=== PATIENT | male | born 2005 | race Caucasian/White ===

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

== ENCOUNTER 2023-03-04 10:48 | Outpatient (AMB) | payer OTHER, SELFPAY ==
[2023-03-04 10:56] VITALS: BP 108/66; PULSE 89; RESP 13; TEMP 36.3; O2SAT 99; BMI 24.0
--- NOTE | 2023-03-04 10:56 | MHC.PC.OV ---
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 Accompanied by: Brother Allergies No Known Allergies Allergy (Verified 03/04/23 11:13) Medication List - Last Reconciled 03/04/23 by Tomi Venegas CNP baclofen 5 mg PO TID fluoxetine 10 mg PO DAILY quetiapine (Seroquel) 25 mg PO BEDTIME 30 days trihexyphenidyl 2 mg PO TID Tobacco use date assessed: 06/11/22 Dental Screening Dental Screen Date: 03/04/23 Did you have a dental visit in the last 12 months?: No Did you have a dental problem in the last 6 months where you did not have access to dental care?: No Was dental information given to patient?: Patient has dentist HPI HPI Comments History of Present Illness Details 16-year-old Sinhala speaking male, accompanied by his brother, presents for immigration paperwork He filed for immigration benefit for [place] citizenship on the basis of his disability. He was asked to have Notice of Appeal or Motion forms completed and signed by a physician He has history of anxiety, depression, and sleep disturbances According to his brother, the patient's anxiety and depression symptoms have been well-controlled He is followed by [facility] neuropsychiatry, Dr. Karma Chamorro who manages his mental illnesses [facility] Medical History Ataxic gait Cerebral palsy Cerebral palsy with gross motor function classification system level II Surgical History H/O left inguinal hernia repair S/P orchiopexy Family History Mother Hypertension Diabetes Maternal Grandmother Hypertension Diabetes Paternal Grandmother Diabetes Hypertension Social History Household Members: Family Household Members Other:: cared for by adult siblings. parents still in [place] (??) Both parents involved: Yes Housing: House Alcohol intake: never Patient Tobacco Use Status: Never used Tobacco e-Cigarette/Vaping Use: Never Used service: No Current occupational status: disabled Current occupational exposures/hazards: No Cognitive needs: Yes Hearing needs: No Vision needs: No Questionnaire Thrive Questionnaire Date Thrive assessed: 06/11/22 FROILAN-7 AMB Questionnaire FROILAN-7 Date FROILAN - 7 assessed: 11/09/22 Source: Developed by Drs. Felix Menjivar, Abigail Anderson, Heath Ibarra and colleagues, with an educational lane from [employer]. Review of Systems Const Details: Const Details: Denies chills, Denies fatigue, Denies fever(s), Denies headache(s) and Denies weakness HEENT Denies change in vision, Denies dizziness, Denies headache(s), Denies hearing loss, Denies nasal congestion, Denies sinus pain, Denies sinus pressure and Denies sore throat Card Denies chest pain, Denies lightheadedness, Denies dyspnea and Denies other (palpitations) Resp Denies cough, Denies dyspnea and Denies wheezing GI Denies abdominal pain, Denies melena, Denies hematochezia, Denies change in bowel habits, Denies dyspepsia and Denies nausea Denies hematuria and Denies dysuria Musc Reports abnormal gait, Denies myalgias, Denies arthralgias, Denies numbness and Denies tingling Skin/Breast Denies rash, Denies unusual bruising and Denies wounds Neuro Reports abnormal gait, Denies dizziness, Denies headache(s), Denies memory loss, Denies numbness, Denies Sensory deficit (Neuro), Denies tingling and Denies weakness Psych Denies anxiety, Denies depression and Denies memory loss Endo Denies cold intolerance, Denies fatigue, Denies heat intolerance, Denies polydipsia and Denies polyuria Luan/Lymph Denies easy bleeding and Denies easy bruising Aller/Immun Denies wheezing Physical exam (Primary Care) Vital Signs: Last Vital Signs Temp 97.4 F 03/04/23 10:56 Pulse 89 03/04/23 10:56 Resp 13 03/04/23 10:56 BP 108/66 03/04/23 10:56 Pulse Ox 99 03/04/23 10:56 Oxygen Delivery Method Room Air 03/04/23 10:56 BMI result Body Mass Index 24.0 Tobacco/Smoking Status: Tobacco use Status Tobacco use date assessed 06/11/22 11/09/22 11:06 Patient Tobacco Use Status Never used Tobacco 11/09/22 11:06 e-Cigarette/Vaping Use Never Used 11/09/22 11:06 Thrive Assessment: Date of Thrive Assessment Date Thrive assessed 06/11/22 11/09/22 11:06 Const Other: Const Other: General: no acute distress, alert, awake, and pleasant Nutritional Appearance: well nourished Orientation/consciousness: patient alert, quite pleasant, follows commands that are translated into Sinhala by his brother, responds in one or 2 words, in Sinhala HENMT Head: Yes normocephalic and Yes atraumatic Ears:?hearing grossly normal bilaterally and TM's normal bilaterally General nose exam: Normal external nose present and Normal nares present Mouth:?Normal oral and palatal mucosa present and moist mucous membranes Teeth and gingiva:?dentition normal Throat:?Yes oropharynx normal Eyes Pupils: Equal, round and reactive pupils present and Pupil accommodation reflex normal EOM: EOMs intact bilaterally Neck Neck: Yes normal visual inspection, Yes no lymphadenopathy and Yes trachea midline Thyroid: Thyroid normal Carotids: no bruits Lymphatic: no lymphadenopathy noted Chest Chest palpation & inspection: normal inspection of the chest Resp Effort & Inspection: normal respiratory effort Auscultation: clear to auscultation bilaterally Cardio Rate: regular rate Rhythm: regular rhythm Heart sounds: S1 normal heart sound present, S2 normal heart sound present, no gallops, no murmurs and no rubs Bruits: no abdominal aortic bruits and no carotid bruits GI Palpation (GI): No Abdominal aortic bruit present, Soft to palpation, nontender, No hepatosplenomegaly present and No Rebound tenderness present Auscultation: normal bowel sounds General: Yes no CVA tenderness Back/Spine/Pelvis Back: no CVA tenderness Cervical Spine: cervical ROM normal and No Cervical spine tenderness Thoracic/Lumbar Spine: thoraco-lumbar ROM normal, No pain with thoraco-lumbar ROM, No thoracic spinal tenderness and No lumbar spinal tenderness Skin General: warm and dry. Normal skin color. Normal skin turgor Lesions: no lesions Rashes: no rashes Trauma: no lacerations or abrasions Wounds: no wounds Nails: normal Neuro General: patient alert, crouch gait and responds in one to two words Cranial nerves: Yes Equal, round and reactive pupils present Cognition (Neuro): impaired cognition at baseline Gait exam (Neuro): crotch gait present at baseline Motor exam (neuro): 5/5 motor strength present throughout Sensory Exam: abnormal speech at baseline Extrem General: Yes normal to inspection, No edema and No calf tenderness Psych Appearance: grossly normal Affect: normal affect Attitude: pleasant and cooperative Thought process: unable to determined Assessment and Plan Assessment & Plan (1) Anxiety and depression: Code(s): F41.9 - Anxiety disorder, unspecified; F32.A - Depression, unspecified Plan: Reports controlled symptoms Continue with current treatment regimen Continue follow neuropsychiatry as planned Immigration paperwork to be completed by Dr. Solano Advised to follow-up with PCP as planned or return with symptoms or concerns Verbalized understanding and agreed with treatment plan The patient's brother answered questions and interpreted for the patient Coding Level of Care Code Est Pt Level 3 (04003) Diagnoses Anxiety and depression F41.9; F32.A
== END 2023-03-04 12:00 | disposition home or self-care (01) ==
PROVIDERS: PCP Nurse Practitioner Family; Visit Provider Nurse Practitioner Family
DX: F41.9 Anxiety disorder, unspecified (principal); F32.A Depression, unspecified
CPT/HCPCS: 99213

== ENCOUNTER 2023-08-10 14:45 | Outpatient (AMB) | payer OTHER, SELFPAY ==
[2023-08-10 14:47] VITALS: BP 116/70; PULSE 77; RESP 14; TEMP 36.1; O2SAT 99; BMI 23.3
--- NOTE | 2023-08-10 14:47 | A.OFFPC_ITS ---
Vital Signs 08/10/23 14:47 Height 5 ft 4.7 in Weight 139 lb BMI 23.3 BP 116/70 Blood Pressure Location Rt brachial Position Sitting Respiration 14 Pulse 77 Pulse Source Pulse Oximeter Temp 97 F Temp Source Temporal Artery Scan Pulse Oximetry (%) 99 Oxygen Delivery Method Room Air Intake Visit Reasons: PE Cloud Developer Required: Yes Cloud Developer Name: Kelsey (sister) Accompanied by: Sister Allergies No Known Allergies Allergy (Verified 08/10/23 15:09) Medication List - Last Reconciled 08/10/23 by Tomi Venegas CNP baclofen 5 mg PO TID trihexyphenidyl 2 mg PO TID Tobacco use date assessed: 08/10/23 Dental Screening Dental Screen Date: 08/10/23 Did you have a dental visit in the last 12 months?: No Did you have a dental problem in the last 6 months where you did not have access to dental care?: No Was dental information given to patient?: Yes HPI HPI Comments History of Present Illness Details 17-year-old Nepali speaking male, accomp anied by his sister, presents for an extended physical exam He has PMH significant for ataxic cerebral palsy, spastic quadriplegia, ataxia, and GMFCS II He is on baclofen and trihexyphendidyl which he takes as prescribed without adverse reactions. He has no longer taking fluoxetine He has controlled anxiety and depression symptoms He has history of drooling which has recently increased He also has discolored toenails which maybe a fungal infection; request treatment He is followed by [facility] neuropsychiatry, Dr. Karma Chamorro who provide psychiatric care He has not been evaluated by a dentist in over a year Interpretation by the patient's sister per patient's preference [facility] Medical History Ataxic gait Cerebral palsy with gross motor function classification system level II Cerebral palsy Surgical History S/P orchiopexy H/O left inguinal hernia repair Family History Mother Hypertension Diabetes Maternal Grandmother Hypertension Diabetes Paternal Grandmother Diabetes Hypertension Social History Household Members: Family Household Members Other:: cared for by adult siblings. parents still in [place] (??) Both parents involved: Yes Caregiver staying overnight: Yes Housing: Apartment Are you a primary intensive care ambulance paramedic to a significant other at home: No Do you presently have visiting nurse or other home services: Yes 75 years or older and lives alone: No Alcohol intake: never Patient Tobacco Use Status: Never used Tobacco e-Cigarette/Vaping Use: Never Used service: No Current occupational status: disabled Current occupational exposures/hazards: No Cognitive needs: Yes Hearing needs: No Vision needs: No Questionnaire PHQ-9 Over the last 2 weeks, how often have you been bothered by any of the following problems? 1. Little interest or pleasure in doing things: not at all 2. Feeling down, depressed, or hopeless: not at all 3. Trouble falling or staying asleep, or sleeping too much: several days 4. Feeling tired or having little energy: several days 5. Poor appetite or overeating: not at all 6. Feeling bad about yourself - or that you are a failure or have let yourself or your family down: not at all 7. Trouble concentrating on things, such as reading the newspaper or watching television: not at all 8. Moving or speaking so slowly that other people could have noticed. Or the opposite - being so fidgety or restless that you have been moving around a lot more than usual: not at all 9. Thoughts that you would be better off or of hurting yourself in some way: not at all Total score: 2 Depression Screening Interpretation: Negative Depression Screening Done: Yes 45538 - PHQ-9 Billing: Yes Source: Developed by Drs. Felix Menjivar, Abigail Anderson, Heath Ibarra and colleagues, with an educational lane from [employer]. Thrive Questionnaire Date Thrive assessed: 08/10/23 I am a: Patient What is your living situation today?: I have a steady place to live Within the past 12 months, did the food you bought not last and you didn't have the money to get more?: Never true Within the past 12 months, did you worry whether your food would run out before you got money to buy more?: Never true Do you have trouble paying for medicines?: No Do you have trouble getting transportation to medical appointments?: No Do you have trouble paying your heating and electricity bill?: Yes Do you have trouble taking care of your child, family member or friend?: No Do you have trouble with day-to-day activities such as bathing, preparing meals, shopping, managing finances, etc.?: Yes Are you currently unemployed and looking for a job?: No Are you interested in more education?: No Please select the resources that you would like help with: None Currently or been in a relationship where the following occur: no concerns reported THRIVE Score: 1 AUDIT C Alcohol Use Questionnaire (AUDIT-C) 1. How often do you have a drink containing alcohol?: Never 3. How often do you have six or more drinks on one occasion?: Never Total Score: 0 FROILAN-7 AMB Questionnaire FROILAN-7 Date FROILAN - 7 assessed: 08/10/23 Feeling nervous, anxious, or on edge: 0 = Not at all Not being able to stop or control worryin = Not at all Worrying too much about different things: 0 = Not at all Trouble relaxin = Several days Being so restless that it is hard to sit still: 1 = Several days Becoming easily annoyed or irritable: 2 = More than half the days Feeling afraid as if something awful might happen: 0 = Not at all Total FROILAN-7 score (0-4 normal; 5-9 mild; 10-14 moderate; 15-21 severe): 4 Source: Developed by Drs. Felix Menjivar, Abigail Anderson, Heath Ibarra and colleagues, with an educational lane from [employer]. FROILAN-7 Assessment Billing FROILAN-7 Assessment Tool: FROILAN-7 Assessment 37112 Review of Systems Const Details: Denies chills, Denies fatigue, Denies fever(s), Denies headache(s) and Denies weakness HEENT Reports drooling, Denies change in vision, Denies dizziness, Denies headache(s), Denies hearing loss, Denies nasal congestion, Denies sinus pain, Denies sinus pressure and Denies sore throat Card Denies chest pain, Denies lightheadedness, Denies dyspnea and Denies other (palpitations) Resp Denies cough, Denies dyspnea and Denies wheezing GI Denies abdominal pain, Denies melena, Denies hematochezia, Denies change in mariya wel habits, Denies dyspepsia and Denies nausea Denies hematuria and Denies dysuria Musc Denies abnormal gait, Denies myalgias, Denies arthralgias, Denies numbness and Denies tingling Skin/Breast Reports discolored noenails, Denies rash, Denies unusual bruising and Denies wo unds Neuro Denies abnormal gait, Denies dizziness, Denies headache(s), Denies memory loss, Denies numbness, Denies Sensory deficit (Neuro), Denies tingling and Denies weakness Psych Denies anxiety, Denies depression and Denies memory loss Endo Denies cold intolerance, Denies fatigue, Denies heat intolerance, Denies polydipsia and Denies polyuria Luan/Lymph Denies easy bleeding and Denies easy bruising Aller/Immun Denies wheezing Physical exam (Primary Care) Vital Signs: Last Vital Signs Temp 97 F 08/10/23 14:47 Pulse 77 08/10/23 14:47 Resp 14 08/10/23 14:47 BP 116/70 08/10/23 14:47 Pulse Ox 99 08/10/23 14:47 Oxygen Delivery Method Room Air 08/10/23 14:47 BMI result Body Mass Index 23.3 Tobacco/Smoking Status: Tobacco use Status Tobacco use date assessed 06/11/22 03/04/23 11:03 Patient Tobacco Use Status Never used Tobacco 03/04/23 11:03 e-Cigarette/Vaping Use Never Used 03/04/23 11:03 Depression Screening Interpretation: Negative Thrive Assessment: Date of Thrive Assessment Date Thrive assessed 06/11/22 03/04/23 11:03 Currently or been in a relationship where the following occur: no concerns reported Const Other: Const Other: General: no acute distress, alert and awake Nutritional Appearance: well nourished Orientation/consciousness: patient alert, quite pleasant, follows commands that are translated into Nepali by his brother and sister RAYMONDTX Head: Yes normocephalic and Yes atraumatic Ears: hearing grossly normal bilaterally and TM's normal bilaterally General nose exam: Normal external nose present and Normal nares present Mouth: Normal oral and palatal mucosa present and moist mucous membranes Teeth and gingiva: dentition normal Throat: Yes oropharynx normal Eyes Pupils: Equal, round and reactive pupils present and Pupil accommodation reflex normal EOM: EOMs intact bilaterally Neck Neck: Yes normal visual inspection, Yes no lymphadenopathy and Yes trachea midline Thyroid: Thyroid normal Carotids: no bruits Lymphatic: no lymphadenopathy noted Chest Chest palpation & inspection: normal inspection of the chest Resp Effort & Inspection: normal respiratory effort Auscultation: clear to auscultation bilaterally Cardio Rate: regular rate Rhythm: regular rhythm Heart sounds: S1 normal heart sound present, S2 normal heart sound present, no gallops, no murmurs and no rubs Bruits: no abdominal aortic bruits and no carotid bruits GI Palpation (GI): No Abdominal aortic bruit present, Soft to palpation, nontender, No hepatosplenomegaly present and No Rebound tenderness present Auscultation: normal bowel sounds General: Yes no CVA tenderness Back/Spine/Pelvis Back: no CVA tenderness Cervical Spine: cervical ROM normal and No Cervical spine tenderness Thoracic/Lumbar Spine: thoraco-lumbar ROM normal, No pain with thoraco-lumbar ROM, No thoracic spinal tenderness and No lumbar spinal tenderness Skin General: warm and dry. Normal skin color. Normal skin turgor Lesions: no lesions Rashes: no rashes Trauma: no lacerations or abrasions Wounds: no wounds Nails: Discolored and thickened toenails of both feet, toenail of the left great toe is worse Neuro General: patient alert, crouch gait and unable to speak normally Cranial nerves: Yes Equal, round and reactive pupils present Cognition (Neuro): impaired cognition Gait exam (Neuro): crotch gait present Motor exam (neuro): 5/5 motor strength present throughout Sensory Exam: abnormal speech Deep tendon reflexes (DTR's): Right patellar reflex intensity grade: 2+ and Left patellar reflex intensity grade: 2+ Extrem General: Yes normal to inspection, No edema and No calf tenderness Psych Appearance: grossly normal Affect: normal affect Attitude: cooperative Thought process: unable to determined Assessment and Plan Assessment & Plan (1) Abnormal physical evaluation: Code(s): Z00.01 - Encounter for general adult medical examination with abnormal findings Plan: Abnormal physical exam Crotch gait d/t ataxia Significant physical restrictions and limitations noted Continue current treatment regimen Healthy diet and routine exercise encouraged Advised to establish care with a dentist for routine dental care Follow-up in 6 weeks for onychomycosis or return sooner with symptoms or c oncerns Verbalized understanding and agreed with treatment plan (2) Drooling: Code(s): K11.7 - Disturbances of salivary secretion Plan: His drooling has increased from baseline No drooling present during exam May be attributed to his neurologic conditions Baseline neurologic exam Patient's sister advised to continue to monitor. May referred to Neurology with persistent drooling Verbalized understanding and agreed with with the plan (3) Onychomycosis: Code(s): B35.1 - Tinea unguium Plan: Discolored and thickened toenails of both feet, toenail of the left great toe is worse Will treat with terbinafine once liver enzyme blood work is complete Advised to get fasting blood work done as soon as possible; fast for 10-12 hours, may drink water only Follow-up in 6 weeks; get fasting liver enzyme blood work done to 3 days before follow-up visit Return sooner with symptoms or concerns Verbalized understanding and agreed with treatment plan Orders: Orders TSH reflex Free T4 Today Z00.00 - Encounter for general adult medical examination without abnormal findings Complete Blood Count Auto Diff Today Z00.00 - Encounter for general adult medical examination without abnormal findings Comprehensive [place]. Panel Fast Today Z00.01 - Encounter for general adult medical examination with abnormal findings Lipid Panel Today Z00.00 - Encounter for general adult medical examination without abnormal findings UA CC w/rflx Micro + Cult Today Z00.00 - Encounter for general adult medical examination without abnormal findings Coding Level of Care Code Est Pt Level 4 (02816) Est Pt Prev Care 18-39y(75257) Diagnoses Abnormal physical evaluation Z00.01 Drooling K11.7 Onychomycosis B35.1 Additional Codes FROILAN-7 Assessment Billing - FROILAN-7 Assessment Tool: FROILAN-7 Assessment [id number] ([id number])
== END 2023-08-10 15:29 | disposition home or self-care (01) ==
PROVIDERS: PCP Nurse Practitioner Family; Visit Provider Nurse Practitioner Family
DX: Z00.01 Encounter for general adult medical examination with abnormal findings (principal); K11.7 Disturbances of salivary secretion; B35.1 Tinea unguium
CPT/HCPCS: 99395

== ENCOUNTER 2023-08-13 11:09 | Outpatient (REF) | payer OTHER, SELFPAY ==
[2023-08-13 14:27] LABS: MANUAL DIFF FLAG NO
[2023-08-13 14:42] LABS: Basophils Percent Auto 0.2 % (0-2); Eosinophils Absolute Auto 0.2 X10*3/uL (0.0-0.4); Eosinophils Percent Auto 2.9 % (0-4); Hematocrit 45.1 % (42.0-52.0); Imm Gran Abs Auto 0.01 X10*3/uL (0.00-0.03); Imm Gran Pct Auto 0.2 % (0.0-0.4); Lymphocytes Absolute Auto 2.8 X10*3/uL (1.2-4.9); Lymphocytes Percent Auto 53.3 % (20-40); Mean Corpuscular HGB Conc 33.3 g/dl (31.0-36.0); Mean Corpuscular Hemoglobin 32.6 pg (27.0-33.0); Mean Platelet Volume 12.3 fL (9.4-12.4); Monocytes Absolute Auto 0.4 X10*3/uL (0.1-1.2); Monocytes Percent Auto 7.3 % (2-11); Neutrophils Absolute Auto 1.9 x10*3/uL (2.0-8.3); Neutrophils Percent Auto 36.1 % (45-73); Platelet Count 168 X10*3/uL (160-400); Red Cell Distribution Width 11.7 % (11.0-16.0); White Blood Count 5.2 X10*3/uL (4.8-10.8)
[2023-08-13 15:23] LABS: Alanine Aminotransferase 17 U/L (0-40); Albumin Level 4.7 g/dL (3.5-5.0); Alkaline Phosphatase 61 U/L (39-117); Anion Gap 14 (12-20); Aspartate Amino Transferase 17 U/L (5-37); Bilirubin Total 1.4 mg/dL (0.0-1.0); Blood Urea Nitrogen 14 mg/dL (9-16); Calcium 9.9 mg/dL (8.4-10.2); Carbon Dioxide 25 mmol/L (22-29); Chloride 105 mmol/L (96-108); Cholesterol 129 mg/dL (<200); Estimated Glomerular Filt Rate > 60; Glucose Fasting 83 mg/dL (60-99); HDL Cholesterol 48 mg/dL (>40); LDL Cholesterol Calculated 71 mg/dL (<100); Potassium 4.3 mmol/L (3.3-5.1); Sodium 140 mmol/L (135-145); Total Protein 7.2 g/dL (6.5-8.0); Triglycerides 54 mg/dL (<150)
[2023-08-13 15:42] LABS: TSH reflex Free T4 0.73 uIU/mL (0.32-4.0)
== END 2023-08-13 11:10 | disposition home or self-care (01) ==
LOC: HO.WFDLDS 11:09
PROVIDERS: Visit Provider Nurse Practitioner Family
DX: Z00.01 Encounter for general adult medical examination with abnormal findings (principal)
CPT/HCPCS: 36415; 80053; 80061; 84443; 85025

== ENCOUNTER 2023-08-18 11:49 | Outpatient (REF) | payer OTHER, SELFPAY ==
[2023-08-18 14:33] LABS: Appearance Urine Clear; Color Urine Yellow; Glucose Urine UA Negative (Negative); Leukocyte Esterase Urine Negative (Negative); Nitrite Urine Negative (Negative); PH 5.5 (5.0-9.0); Urine Blood Negative (Negative); Urine Ketones Negative (Negative); Urine Protein Negative (Neg-Trace)
== END 2023-08-18 11:50 | disposition home or self-care (01) ==
LOC: HO.WFDLDS 11:49
PROVIDERS: Visit Provider Nurse Practitioner Family
DX: Z00.00 Encounter for general adult medical examination without abnormal findings (principal)
CPT/HCPCS: 81003

== ENCOUNTER 2023-09-27 10:35 | Outpatient (AMB) | payer OTHER, SELFPAY ==
--- NOTE | 2023-09-27 10:37 | A.OFFPC_ITS ---
Vital Signs 09/27/23 10:39 Height 5 ft 4.7 in Weight 137 lb 7 oz BMI 23.1 BP 114/66 Blood Pressure Location Rt brachial Position Sitting Respiration 14 Pulse 66 Pulse Source Pulse Oximeter Temp 97.7 F Temp Source Temporal Artery Scan Pulse Oximetry (%) 97 Oxygen Delivery Method Room Air Intake Visit Reasons: F/U labs Signal Constructor Required: Yes Accompanied by: Sister Allergies No Known Allergies Allergy (Verified 09/27/23 10:51) Medication List - Last Reconciled 09/27/23 by Tomi Venegas CNP baclofen 5 mg PO TID trihexyphenidyl 2 mg PO TID Tobacco use date assessed: 08/10/23 Dental Screening Dental Screen Date: 08/10/23 HPI HPI Comments History of Present Illness Details 17-year-old Uzbek speaking male, accomp anied by his sister, presents f or review of recent blood work His sister notes that the patient's discolored toenails have significantly improved since his last visit. She does not think treatment is necessary at this time No acute symptoms PFSH Medical History Ataxic gait Cerebral palsy with gross motor function classification system level II Cerebral palsy Surgical History S/P orchiopexy H/O left inguinal hernia repair Family History Mother Hypertension Diabetes Maternal Grandmother Hypertension Diabetes Paternal Grandmother Diabetes Hypertension Social History Household Members: Family Household Members Other:: cared for by adult siblings. parents still in [place] ( ??) Both parents involved: Yes Caregiver staying overnight: Yes Housing: Apartment Are you a primary customer care associate to a significant other at home: No Do you presently have visiting nurse or other home services: Yes 75 years or older and lives alone: No Alcohol intake: never Patient Tobacco Use Status: Never used Tobacco e-Cigarette/Vaping Use: Never Used service: No Current occupational status: disabled Current occupational exposures/hazards: No Cognitive needs: Yes Hearing needs: No Vision needs: No Questionnaire Thrive Questionnaire Date Thrive assessed: 08/10/23 FROILAN-7 AMB Questionnaire FROILAN-7 Date FROILAN - 7 assessed: 08/10/23 Source: Developed by Drs. Felix Menjivar, Abigail Anderson, Heath Ibarra and colleagues, with an educational lane from [employer] Review of Systems Const Details: Const Details: Denies chills, Denies fatigue, Denies fever(s), Denies headache(s) and Denies weakness HEENT Reports drooling, Denies change in vision, Denies dizziness, Denies headache(s), Denies hearing loss, Denies nasal congestion, Denies sinus pain, Denies sinus pressure and Denies sore throat Card Denies chest pain, Denies lightheadedness, Denies dyspnea and Denies other (palpitations) Resp Denies cough, Denies dyspnea and Denies wheezing GI Denies abdominal pain, Denies melena, Denies hematochezia, Denies change in bowel habits, Denies dyspepsia and Denies nausea Denies hematuria and Denies dysuria Musc Denies abnormal gait, Denies myalgias, Denies arthralgias, Denies numbness and Denies tingling Skin/Breast Reports discolored noenails, Denies rash, Denies unusual bruising and Denies wounds Neuro Denies abnormal gait, Denies dizziness, Denies headache(s), Denies memory loss, Denies numbness, Denies Sensory deficit (Neuro), Denies tingling and Denies weakness Psych Denies anxiety, Denies depression and Denies memory loss Endo Denies cold intolerance, Denies fatigue, Denies heat intolerance, Denies poly dipsia and Denies polyuria Luan/Lymph Denies easy bleeding and Denies easy bruising Aller/Immun Denies wheezing Physical exam (Primary Care) Vital Signs: Last Vital Signs Temp 97.7 F 09/27/23 10:39 Pulse 66 09/27/23 10:39 Resp 14 09/27/23 10:39 BP 114/66 09/27/23 10:39 Pulse Ox 97 09/27/23 10:39 Oxygen Delivery Method Room Air 09/27/23 10:39 BMI result Body Mass Index 23.1 Tobacco/Smoking Status: Tobacco use Status Tobacco use date assessed 08/10/23 09/27/23 10:45 Patient Tobacco Use Status Never used Tobacco 09/27/23 10:45 e-Cigarette/Vaping Use Never Used 09/27/23 10:45 Thrive Assessment: Date of Thrive Assessment Date Thrive assessed 08/10/23 09/27/23 10:45 Const Other: Const Other: General: no acute distress, alert and awake Nutritional Appearance: well nourished Orientation/consciousness: patient alert, quite pleasant, follows commands that are translated into Uzbek by his brother and sister JOSHUA Head: Yes normocephalic and Yes atraumatic Eyes Pupils: Equal, round and reactive pupils present and Pupil accommodation reflex normal EOM: EOMs intact bilaterally Neck Neck: Yes normal visual inspection, Yes no lymphadenopathy and Yes trachea midline Thyroid: Thyroid normal Carotids: no bruits Lymphatic: no lymphadenopathy noted Chest Chest palpation & inspection: normal inspection of the chest Resp Effort & Inspection: normal respiratory effort Auscultation: clear to auscultation bilaterally Cardio Rate: regular rate Rhythm: regular rhythm Heart sounds: S1 normal heart sound present, S2 normal heart sound present, no gallops, no murmurs and no rubs Bruits: no abdominal aortic bruits and no carotid bruits GI Palpation (GI): No Abdominal aortic bruit present, Soft to palpation, nontender, No hepatosplenomegaly present and No Rebound tenderness present Auscultation: normal bowel sounds General: Yes no CVA tenderness Back/Spine/Pelvis Back: no CVA tenderness Cervical Spine: cervical ROM normal and No Cervical spine tenderness Thoracic/Lumbar Spine: thoraco-lumbar ROM normal, No pain with thoraco-lumbar ROM, No thoracic spinal tenderness and No lumbar spinal tenderness Skin General: warm and dry. Normal skin color. Normal skin turgor Lesions: no lesions Rashes: no rashes Trauma: no lacerations or abrasions Wounds: no wounds Nails: Discolored and thickened toenails of both feet, significantly improved since last visit Neuro General: patient alert, crouch gait and unable to speak normally Cognition (Neuro): impaired cognition Gait exam (Neuro): crotch gait present Sensory Exam: abnormal speech Extrem General: Yes normal to inspection, No edema and No calf tenderness Psych Appearance: grossly normal Affect: normal affect Attitude: cooperative Thought process: unable to determined Assessment and Plan Assessment & Plan (1) Onychomycosis: Code(s): B35.1 - Tinea unguium Plan: Discolored and thickened toenails of both feet, significantly improved since last visit Treatment not warranted at this time Encouraged to continue current treatment regimen, schedule his next physical exam 08/2024, return with symptoms or concerns Patient's sister verbalized understanding and agreed with the plan (2) Hyperbilirubinemia: Code(s): E80.6 - Other disorders of bilirubin metabolism Plan: Recent lab work reviewed with the patient; unremarkable findings except for slightly elevated bilirubin, 1.4. Previous bilirubin level was 1.5 CBC and liver enzymes are normal Gilbert syndrome is likely Will monitor annually Advised to get blood work done before his next visit Verbalized understanding and agreed with the plan Coding Level of Care Code Est Pt Level 3 (23702) Diagnoses Onychomycosis B35.1 Hyperbilirubinemia E80.6
[2023-09-27 10:39] VITALS: BP 114/66; PULSE 66; RESP 14; TEMP 36.5; O2SAT 97; BMI 23.1
== END 2023-09-27 11:15 | disposition home or self-care (01) ==
PROVIDERS: PCP Nurse Practitioner Family; Visit Provider Nurse Practitioner Family
DX: B35.1 Tinea unguium (principal); E80.6 Other disorders of bilirubin metabolism
CPT/HCPCS: 99213

== ENCOUNTER 2024-06-01 09:25 | Outpatient (AMB) | payer OTHER, SELFPAY ==
--- NOTE | 2024-06-01 09:26 | MHC.PC.OV ---
Vital Signs 06/01/24 09:33 Height 5 ft 4.7 in Weight 141 lb BMI 23.7 BP 118/59 L Blood Pressure Location Rt brachial Position Sitting Respiration 16 Pulse 84 Pulse Source Pulse Oximeter Temp 98.2 F Temp Source Oral Pulse Oximetry (%) 96 Oxygen Delivery Method Room Air Intake Visit Reasons: Application U.[place].Citizenship and Immigration Serv Intake Note: patient here for application [place] Citizenship and immigration serv Digital Content Producer Required: Yes Digital Content Producer Language: Slovenian Digital Content Producer Name: patient refused has his sister Accompanied by: Sister Allergies No Known Allergies Allergy (Verified 06/01/24 09:41) Medication List - Last Reconciled 06/01/24 by Tomi Venegas CNP baclofen 5 mg PO TID trihexyphenidyl 2 mg PO TID Tobacco use date assessed: 06/01/24 Dental Screening Dental Screen Date: 06/01/24 Did you have a dental visit in the last 12 months?: Yes Did you have a dental problem in the last 6 months where you did not have access to dental care?: No Was dental information given to patient?: Patient has dentist HPI HPI Comments History of Present Illness Details 18-year-old Slovenian speaking male, accompanied by his sister, presents with requests to complete [employer] application for citizenship. Patient is disabled and needs paperwork completed by his PCP. The paperwork was initially completed by Dr. Solano as USCIS required completion by a physician. However, [employer] declined the application due to incomplete information. Patient offers no complaints and denies acute symptoms at this time. Interpretation by the patient's sister per patient's preference. Most of the information provided by the patient's [facility] Medical History Ataxic gait Cerebral palsy with gross motor function classification system level II Cerebral palsy Surgical History S/P orchiopexy H/O left inguinal hernia repair Family History Mother Hypertension Diabetes Maternal Grandmother Hypertension Diabetes Paternal Grandmother Diabetes Hypertension Social History Household Members: Family Household Members Other:: cared for by adult siblings. parents still in [place] (??) Both parents involved: Yes Caregiver staying overnight: Yes Housing: Apartment Are you a primary childcare center administrator to a significant other at home: No Do you presently have visiting nurse or other home services: Yes 75 years or older and lives alone: No Alcohol intake: never Patient Tobacco Use Status: Never used Tobacco e-Cigarette/Vaping Use: Never Used Second Hand Smoke Exposure: No service: No Current occupational status: disabled Current occupational exposures/hazards: No Cognitive needs: Yes Hearing needs: No Vision needs: No Questionnaire PHQ-9 Over the last 2 weeks, how often have you been bothered by any of the following problems? 1. Little interest or pleasure in doing things: several days 2. Feeling down, depressed, or hopeless: more than half the days 3. Trouble falling or staying asleep, or sleeping too much: several days 4. Feeling tired or having little energy: several days 5. Poor appetite or overeating: more than half the days 6. Feeling bad about yourself - or that you are a failure or have let yourself or your family down: not at all 7. Trouble concentrating on things, such as reading the newspaper or watching television: several days 8. Moving or speaking so slowly that other people could have noticed. Or the opposite - being so fidgety or restless that you have been moving around a lot more than usual: several days 9. Thoughts that you would be better off or of hurting yourself in some way: not at all Total score: 9 Depression Screening Interpretation: Positive Depression Screening Follow-up: Existing condition and In treatment Depression Screening Done: Yes 88898 - PHQ-9 Billing: Yes Source: Developed by Drs. Felix Menjivar, Abigail Anderson, Heath Ibarra and colleagues, with an educational lane from [employer]. Thrive Questionnaire Date Thrive assessed: 06/01/24 I am a: Parent/Caregiver What is your living situation today?: I have a steady place to live Within the past 12 months, did the food you bought not last and you didn't have the money to get more?: Sometimes True Within the past 12 months, did you worry whether your food would run out before you got money to buy more?: Never true Do you have trouble paying for medicines?: I choose not to answer this question Do you have trouble getting transportation to medical appointments?: I choose not to answer this question Do you have trouble paying your heating and electricity bill?: Yes Do you have trouble taking care of your child, family member or friend?: I choose not to answer this question Do you have trouble with day-to-day activities such as bathing, preparing meals, shopping, managing finances, etc.?: Yes Are you currently unemployed and looking for a job?: I choose not to answer this question Are you interested in more education?: I choose not to answer this question Please select the resources that you would like help with: Housing/Retirement and Food Currently or been in a relationship where the following occur: I choose not to answer THRIVE Score: 2 AUDIT C Alcohol Use Questionnaire (AUDIT-C) 1. How often do you have a drink containing alcohol?: Never Total Score: 0 FROIALN-7 AMB Questionnaire FROILAN-7 Date FROILAN - 7 assessed: 06/01/24 Feeling nervous, anxious, or on edge: 0 = Not at all Not being able to stop or control worryin = Not at all Worrying too much about different things: 1 = Several days Trouble relaxin = Several days Being so restless that it is hard to sit still: 2 = More than half the days Becoming easily annoyed or irritable: 2 = More than half the days Feeling afraid as if something awful might happen: 2 = More than half the days Total FROILAN-7 score (0-4 normal; 5-9 mild; 10-14 moderate; 15-21 severe): 8 Source: Developed by Drs. Felix Menjivar, Abigail Anderson, Heath Ibarra and colleagues, with an educational lane from [employer]. FROILAN-7 Assessment Billing FROILAN-7 Assessment Tool: FROILAN-7 Assessment 53935 Review of Systems Const Details: Const Denies chills, Denies fatigue, Denies fever(s), Denies headache(s) and Denies weakness ENT Denies dizziness and Denies headache(s) Card Denies chest pain, Denies lightheadedness, Denies dyspnea and Denies other (Palpitations) Resp Denies cough, Denies dyspnea, Denies wheezing and Denies other ( shortness of breath) GI Denies abdominal pain, Denies melena, Denies hematochezia, Denies change in bowel habits, Denies dyspepsia and Denies nausea Denies hematuria and Denies dysuria Musc Reports abnormal gait, Denies myalgias, Denies arthralgias, Denies numbness and Denies tingling Skin/Breast Denies rash, Denies unusual bruising and Denies wounds Neuro Denies abnormal gait, Denies dizziness, Denies headache(s), Denies memory loss, Denies numbness, Denies Sensory deficit (Neuro), Denies tingling and Denies weakness Psych Denies anxiety, Denies depression, Denies memory loss Endo Denies cold intolerance, Denies fatigue, Denies heat intolerance, Denies polydipsia and Denies polyuria Aller/Immun Denies wheezing Physical exam (Primary Care) Vital Signs: Last Vital Signs Temp 98.2 F 06/01/24 09:33 Pulse 84 06/01/24 09:33 Resp 16 06/01/24 09:33 BP 118/59 L 06/01/24 09:33 Pulse Ox 96 06/01/24 09:33 Oxygen Delivery Method Room Air 06/01/24 09:33 BMI result Body Mass Index 23.7 Tobacco/Smoking Status: Tobacco use Status Tobacco use date assessed 06/01/24 06/01/24 09:32 Patient Tobacco Use Status Never used Tobacco 06/01/24 09:29 e-Cigarette/Vaping Use Never Used 06/01/24 09:29 PHQ-9: PHQ-9 Score PHQ-9: Total score 9 06/01/24 09:42 Depression Screening Interpretation: Positive Depression Screening Follow-up: Existing condition and In treatment Thrive Assessment: Date of Thrive Assessment Date Thrive assessed 06/01/24 06/01/24 09:29 Currently or been in a relationship where the following occur: I choose not to answer Const Other: Const Other: General: no acute distress, alert and awake Nutritional Appearance: well nourished Orientation/consciousness: patient alert, quite pleasant, follows commands that are translated into Slovenian by his brother and sister [facility] Head: Yes normocephalic and Yes atraumatic Eyes Pupils: Equal, round and reactive pupils present and Pupil accommodation reflex normal EOM: EOMs intact bilaterally Neck Neck: Yes normal visual inspection, Yes no lymphadenopathy and Yes trachea midline Thyroid: Thyroid normal Carotids: no bruits Lymphatic: no lymphadenopathy noted Chest Chest palpation & inspection: normal inspection of the chest Resp Effort & Inspection: normal respiratory effort Auscultation: clear to auscultation bilaterally Cardio Rate: regular rate Rhythm: regular rhythm Heart sounds: S1 normal heart sound present, S2 normal heart sound present, no gallops, no murmurs and no rubs Bruits: no abdominal aortic bruits and no carotid bruits GI Palpation (GI): No Abdominal aortic bruit present, Soft to palpation, nontender, No hepatosplenomegaly present and No Rebound tenderness present Auscultation: normal bowel sounds General: Yes no CVA tenderness Back/Spine/Pelvis Back: no CVA tenderness Cervical Spine: cervical ROM normal and No Cervical spine tenderness Thoracic/Lumbar Spine: thoraco-lumbar ROM normal, No pain with thoraco-lumbar ROM, No thoracic spinal tenderness and No lumbar spinal tenderness Skin General: warm and dry. Normal skin color. Normal skin turgor Neuro General: patient alert, crouch gait and unable to speak normally Cognition (Neuro): impaired cognition Gait exam (Neuro): crotch gait present Sensory Exam: abnormal speech Extrem General: Yes normal to inspection, No edema and No calf tenderness Psych Appearance: grossly normal Affect: normal affect Attitude: cooperative Thought process: unable to determined Coding Level of Care Code Est Pt Level 3 (36939) Diagnoses Disability affecting daily living R53.81 Additional Codes FROILAN-7 Assessment Billing - FROILAN-7 Assessment Tool: FROILAN-7 Assessment 22945 ([id number]) PHQ-9 - 78788 - PHQ-9 Billing: Yes ([id number]) Assessment & Plan Assessment & Plan (1) Disability affecting daily living: Code(s): R53.81 - Other malaise Category: Medical Plan: Citizenship application paperwork was initially completed by Dr. Solano as [facility] required completion by a physician. However, [facility] declined [place] application due to incomplete information. Consult with Dr. Solano who would complete the paperwork. Patient will be contacted once paperwork is ready for pickup. His sister verbalized understanding and agreed with the plan.
[2024-06-01 09:33] VITALS: BP 118/59; PULSE 84; RESP 16; TEMP 36.8; O2SAT 96; BMI 23.7
--- OUTSIDE RECORDS SUMMARY | 2024-06-01 10:37 | XMS_ITS | Clinical Summary ---
Author Organization [facility] Address [address] [place] [address] Care Team Providers Care Workforce Planning Analyst Name Role Phone Deng Eugene MD Primary Care Provid er Source Comments PLEASE NOTE, if this patient is a minor, it may be UNLAWFUL to discuss sensitive information that is contained in these records (such as FAMILY PLANNING, MENTAL HEALTH or SUBSTANCE ABUSE) with the minor patient's parent or other person without the patient's specific authorization.[facility] Allergies No known active allergies Medications No known medications Active Problems Problem Noted Date Diagnosed Date History of appendectomy 10/21/2021 Overview (10/21/2021): 10/07/2021: Patient admitted to [facility]. Complex dental cavity 07/16/2018 Benign and innocent cardiac murmurs 12/21/2016 Overview (12/21/2016): Per [facility] cardiology peds: NO SBE prophylaxis. No activity restriction. No phamacologic restriction. Unsteady gait 01/14/2016 Overview (12/22/2016): Saw Dr. Cadena on 10/29/16 - Reviewed xrays - demonstrate both hips in joint and right sided trunk lean - passively correctable. May benefit from AFOs. Bracing might be an option. Will see PT. Will RTC in a few weeks . 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 He improved with some intensive PT. Do not feel like he requires surgical intervention. [place] gait worsens may need hamstring lengthening. [place] has summer bike program. 07/15/16: Dr. Schmidt: hope: recommendations summarized: refer to [facility] for possible mri to detect brain damage/injury. Refer to opthalmology for eyes. Have PT in [facility] and in the school. Stay active. Possible horseback riding or hippotherapy. Due to kernicterus sequellae since therefore has speech impairment and has difficulty while walking, partial spastic impairment in all four limbs. 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 08/08/18: surgery planned for august 18: laparoscopic left orchiopexy , possible left inguinal hernia Repair . 02/03/18: Diagnostic laparoscopy recommended, if testicle is present and normal in size Orchiopexy will be preformed , however if testicle was identified as Atrophic, will proceed with Orchiectomy. Pending surgery 01/10/18: Nonvisualization of the left Testes in the scrotum and inguinal canal. Right testes on the scrotum. Left per medical reports Immunizations Name Administration Dates Next Due Flu, Preservative Free 01/08/2017 HEP B, PED/ADOL 01/08/2017,11/11/2016,02/10/2016 HPV 9 (Gardasil) 12/01/2017 HPV, QUADRIVALENT 11/11/2016 Hep A, Ped/adol, 2 Dose 12/01/2017,01/08/2017 IPV 11/11/2016,02/10/2016,01/10/2016 MENINGOCOCCAL MCV4P (MENACTRA) 01/10/2016 MMR (MMR II/Priorix) 01/10/2016 MMRV, Live (Proquad) 02/10/2016 TDAP 01/10/2016 Td (adult), 5 Lf tetanus tox oid, preservative free 01/08/2017,02/10/2016 Varicella, Live Vaccine 11/11/2016 Social History Tobacco Use Types Packs/Day Years Used Date Smoking Tobacco: Passive Smo ke Exposure - Never Smoker Smokeless Tobacco: Never Comments:brother is smoking Alcohol Use Standard Drinks/Week Comments No 0 (1 standard drink = 0.6 oz pur e alcohol) Social Connections Answer Date Recorded Social Connections and Isolation 0 11/23/2018 Financial Resource Strain Answer Date R ecorded Financial Resource Strain 0 2018 Stress Answer Date Recorded Stress 0 11/23/2018 Physical Activity Answer Date Recorded Physical Activity 0 11/23/2018 Food Insecurity Answer Date Recorded Food 0 11/23/2018 Transportation Needs Answer Date Record ed Transportation 0 11/23/2018 Housing Stability Answer Date Recorded Housing 0 11/23/2018 Safety and Environment Answer Date Hubert rded Safety 0 11/23/2018 Utilities Answer Date Recorded Utilities 0 11/23/2018 Employment Answer Date Recorded Employment 0 11/23/2018 Sex and Gender Information Value Date Recorded Sex Assigned at Male 11/11/2016 11:20 AM PDT Legal Sex Male 12:16 PM PDT Gender Identity Male 11/11/2016 11:20 AM PDT Sexual Orientation Not on file Occupation Industry Job Start Date Job End Date DISABLE Not on file Not on file Not on file Last Filed Vital Signs Vital Sign Reading Time Taken Comments Blood Pressure 110/70 12/01/2017 2:49 PM EDT Pulse 78 07/04/2018 1:25 PM EDT Temperature 36.9 ??C (98.4 ??F) 07/04/2018 1:25 PM ED T Respiratory Rate 16 07/04/2018 1:25 PM EDT Oxygen Saturation 100% 07/04/2018 1:25 PM EDT Inhaled Oxygen Concentration - - Weight 52.6 kg (116 lb) 07/04/2018 1:25 PM EDT Height 166 cm (5' 5.35 ) 07/04/2018 1:25 PM EDT Body Mass Index 19.09 07/04/2018 1:25 PM EDT Plan of Treatment [place] on file [place] Care Teams Workforce Planning Analyst Relationship Specialty Start Date End Date Deng Eugene MD [address] [place] [id number] PCP - General Pediatrics 01/05/18
== END 2024-06-01 09:59 | disposition home or self-care (01) ==
PROVIDERS: PCP Nurse Practitioner Family; Visit Provider Nurse Practitioner Family
DX: R53.81 Other malaise (principal)

== ENCOUNTER → 2024-06-01 09:25 | Outpatient (BNVA) | payer OTHER, SELFPAY | PROVIDERS: PCP Nurse Practitioner Family; Visit Provider Nurse Practitioner Family | DX: R53.81 Other malaise (principal) | CPT/HCPCS: 96127; 99212 ==

== ENCOUNTER 2025-03-19 09:01 | Outpatient (AMB) | payer OTHER, SELFPAY ==
[2025-03-19 09:07] VITALS: BP 118/60; PULSE 82; RESP 18; O2SAT 97; BMI 25.2
--- NOTE | 2025-03-19 09:07 | MHC.PC.OV ---
Vital Signs 03/19/25 09:07 Height 5 ft 4.7 in Weight 150 lb 5 oz BMI 25.2 BP 118/60 Blood Pressure Location Rt brachial Position Sitting Respiration 18 Pulse 82 Pulse Source Pulse Oximeter Pulse Oximetry (%) 97 Oxygen Delivery Method Room Air Intake Visit Reasons: Annual Physical/rebook from 03/06 Accompanied by: Brother Allergies No Known Allergies Allergy (Verified 03/19/25 09:27) Medication List - Last Reconciled 03/19/25 by Tomi Venegas CNP No Known Home Meds Tobacco use date assessed: 03/19/25 Dental Screening Dental Screen Date: 03/19/25 Did you have a dental visit in the last 12 months?: No Did you have a dental problem in the last 6 months where you did not have access to dental care?: No Was dental information given to patient?: No HPI HPI Comments History of Present Illness Details 19-year-old Upper Sorbian speaking male, accompanied by his brother, presents for an extended physical exam. He is not currently on prescription medication. He stated going to [employer] [facility] [employer] this semester. Acute issue(s) - None Past Medical History - Ataxic cerebral palsy, spastic quadriplegia, ataxia, GMFCS II, astigmatism, anxiety, depression Social History - Nonsmoker. Does not vape. Does not drink alcohol. Denies recreational drug use - Has been making healthy dietary choices. Exercises routinely. Generally sleep well Health maintenance - Last eye exam was about 6 months ago with [facility] - Last dental visit was 6 months ago - Last Tdap vaccine was in 01/10/2016 - Has not been vaccinated for the flu this season; declines vaccination Specialists - None History obtained by the patient's brother who speaks [place] fluently and interpreted for the patient per patient's preference. [facility] Medical History Ataxic gait Cerebral palsy with gross motor function classification system level II Cerebral palsy Surgical History S/P orchiopexy H/O left inguinal hernia repair Family History Mother Hypertension Diabetes Maternal Grandmother Hypertension Diabetes Paternal Grandmother Diabetes Hypertension Social History (Reviewed 03/19/25 @ 09:10 by DANG Merritt Household Members: Family Household Members Other:: cared for by adult siblings. parents still in [place] (??) Both parents involved: Yes Caregiver staying overnight: Yes Housing: Apartment Are you a primary healthcare project manager to a significant other at home: No Do you presently have visiting nurse or other home services: Yes 75 years or older and lives alone: No Alcohol intake: never Patient Tobacco Use Status: Never used Tobacco e-Cigarette/Vaping Use: Never Used Second Hand Smoke Exposure: No service: No Current occupational status: disabled Current occupational exposures/hazards: No Cognitive needs: Yes Hearing needs: No Vision needs: No Questionnaire PHQ-9 Over the last 2 weeks, how often have you been bothered by any of the following problems? 1. Little interest or pleasure in doing things: several days 2. Feeling down, depressed, or hopeless: more than half the days 3. Trouble falling or staying asleep, or sleeping too much: several days 4. Feeling tired or having little energy: several days 5. Poor appetite or overeating: more than half the days 6. Feeling bad about yourself - or that you are a failure or have let yourself or your family down: not at all 7. Trouble concentrating on things, such as reading the newspaper or watching television: several days 8. Moving or speaking so slowly that other people could have noticed. Or the opposite - being so fidgety or restless that you have been moving around a lot more than usual: several days 9. Thoughts that you would be better off or of hurting yourself in some way: not at all Total score: 9 Depression Screening Interpretation: Positive Depression Screening Follow-up: Existing condition Depression Screening Done: Yes Source: Developed by Drs. Felix Menjivar, Abigail Anderson, Heath Ibarra and colleagues, with an educational lane from [employer]. Thrive Questionnaire Date Thrive assessed: 06/01/24 I am a: Parent/Caregiver What is your living situation today?: I have a steady place to live Within the past 12 months, did the food you bought not last and you didn't have the money to get more?: Sometimes True Within the past 12 months, did you worry whether your food would run out before you got money to buy more?: Never true Do you have trouble paying for medicines?: I choose not to answer this question Do you have trouble getting transportation to medical appointments?: I choose not to answer this question Do you have trouble paying your heating and electricity bill?: Yes Do you have trouble taking care of your child, family member or friend?: I choose not to answer this question Do you have trouble with day-to-day activities such as bathing, preparing meals, shopping, managing finances, etc.?: Yes Are you currently unemployed and looking for a job?: I choose not to answer this question Are you interested in more education?: I choose not to answer this question Currently or been in a relationship where the following occur: I choose not to answer THRIVE Score: 2 AUDIT C Alcohol Use Questionnaire (AUDIT-C) 1. How often do you have a drink containing alcohol?: Never 3. How often do you have six or more drinks on one occasion?: Never Total Score: 0 FROILAN-7 AMB Questionnaire FROILAN-7 Date FROILAN - 7 assessed: 06/01/24 Feeling nervous, anxious, or on edge: 0 = Not at all Not being able to stop or control worryin = Not at all Worrying too much about different things: 1 = Several days Trouble relaxin = Several days Being so restless that it is hard to sit still: 2 = More than half the days Becoming easily annoyed or irritable: 2 = More than half the days Feeling afraid as if something awful might happen: 2 = More than half the days Total FROILAN-7 score (0-4 normal; 5-9 mild; 10-14 moderate; 15-21 severe): 8 Source: Developed by Drs. Felix Menjivar, Abigail Anderson, Heath Ibarra and colleagues, with an educational lane from [employer]. Review of Systems Const Details: Denies chills, Denies fatigue, Denies fever(s), Denies headache(s) and Denies weakness HEENT Denies change in vision, Denies dizziness, Denies headache(s), Denies hearing loss, Denies nasal congestion, Denies sinus pain, Denies sinus pressure and Denies sore throat Card Denies chest pain, Denies lightheadedness, Denies dyspnea and Denies other (palpitations) Resp Denies cough, Denies dyspnea and Denies wheezing GI Denies abdominal pain, Denies melena, Denies hematochezia, Denies change in bowel habits, Denies dyspepsia and Denies nausea Denies hematuria and Denies dysuria Musc Reports abnormal gait at baseline, Denies myalgias, Denies arthralgias, Denies numbness and Denies tingling Skin/Breast Denies rash, Denies unusual bruising and Denies wounds Neuro Reports abnormal gait at baseline, Denies dizziness, Denies headache(s), Denies memory loss, Denies numbness, Denies Sensory deficit (Neuro), Denies tingling and Denies weakness Psych Denies anxiety, Denies depression and Denies memory loss Endo Denies cold intolerance, Denies fatigue, Denies heat intolerance, Denies polydipsia and Denies polyuria Luan/Lymph Denies easy bleeding and Denies easy bruising Aller/Immun Denies wheezing Physical exam (Primary Care) Vital Signs: Last Vital Signs Pulse 82 03/19/25 09:07 BP 118/60 03/19/25 09:07 Pulse Ox 97 03/19/25 09:07 Oxygen Delivery Method Room Air 03/19/25 09:07 BMI result Body Mass Index 25.2 Tobacco/Smoking Status: Tobacco use Status Tobacco use date assessed 03/19/25 03/19/25 09:12 Patient Tobacco Use Status Never used Tobacco 03/19/25 09:07 e-Cigarette/Vaping Use Never Used 03/19/25 09:07 PHQ-9: PHQ-9 Score PHQ-9: Total score 9 03/19/25 09:12 Depression Screening Interpretation: Positive Depression Screening Follow-up: Existing condition Thrive Assessment: Date of Thrive Assessment Date Thrive assessed 06/01/24 03/19/25 09:07 Currently or been in a relationship where the following occur: I choose not to answer Const Other: General: no acute distress, alert and awake Nutritional Appearance: well nourished Orientation/consciousness: patient alert, quite pleasant, mostly nonverbal, answers yes and no to some questions, follows commands that are translated into Upper Sorbian by his brother JOSHUA Head: Yes normocephalic and Yes atraumatic Ears: hearing grossly normal bilaterally and TM's normal bilaterally General nose exam: Normal external nose present and Normal nares present Mouth: Normal oral and palatal mucosa present and moist mucous membranes Teeth and gingiva: dentition normal Throat: Yes oropharynx normal Eyes Pupils: Equal, round and reactive pupils present and Pupil accommodation reflex normal EOM: EOMs intact bilaterally Neck Neck: Yes normal visual inspection, Yes no lymphadenopathy and Yes trachea midline Thyroid: Thyroid normal Carotids: no bruits Lymphatic: no lymphadenopathy noted Chest Chest palpation & inspection: normal inspection of the chest Resp Effort & Inspection: normal respiratory effort Auscultation: clear to auscultation bilaterally Cardio Rate: regular rate Rhythm: regular rhythm Heart sounds: S1 normal heart sound present, S2 normal heart sound present, no gallops, no murmurs and no rubs Bruits: no abdominal aortic bruits and no carotid bruits GI Palpation (GI): No Abdominal aortic bruit present, Soft to palpation, nontender, No hepatosplenomegaly present and No Rebound tenderness present Auscultation: normal bowel sounds General: Yes no CVA tenderness Back/Spine/Pelvis Back: no CVA tenderness Cervical Spine: cervical ROM normal and No Cervical spine tenderness Thoracic/Lumbar Spine: thoraco-lumbar ROM normal, No pain with thoraco-lumbar ROM, No thoracic spinal tenderness and No lumbar spinal tenderness Skin General: warm and dry. Normal skin color. Normal skin turgor Lesions: no lesions Rashes: no rashes Trauma: no lacerations or abrasions Wounds: no wounds Nails: Normal Neuro General: patient alert, crouch gait and mostly nonverbal, answers yes and no to most questions Cranial nerves: Yes Equal, round and reactive pupils present Cognition (Neuro): limited Gait exam (Neuro): crotch gait present Motor exam (neuro): 5/5 motor strength present throughout Sensory Exam: abnormal speech Deep tendon reflexes (DTR's): Right patellar reflex intensity grade: 2+ and Left patellar reflex intensity grade: 2+ Extrem General: Yes normal to inspection, No edema and No calf tenderness Psych Appearance: grossly normal Affect: normal affect Attitude: cooperative Thought process: unable to determined Coding Level of Care Code Est Pt Prev Care 18-39y(28373) Diagnoses Physical exam, annual Z00.00 Laboratory tests ordered as part of a complete physical exam (CPE) Z00.00 Assessment & Plan Assessment & Plan (1) Physical exam, annual: Code(s): Z. - Encounter for general adult medical examination without abnormal findings Category: Medical Plan: Baseline impaired speech and crotch gait present. Physical exam otherwise normal. Healthy diet and routine exercise encouraged. Perform fasting lab work and follow-up for transfer of care in 2-3 with a PCP within the practice. Return sooner with symptoms or concerns. Verbalized understanding and agreed with the plan. (2) Laboratory tests ordered as part of a complete physical exam (CPE): Code(s): Z00.00 - Encounter for general adult medical examination without abnormal findings Category: Medical Plan: Fasting labs ordered as part of a complete physical exam. Advised to fast for at least 10 hours before getting labs drawn. May drink water Verbalized understanding and agreed with treatment plan. Orders: Orders Complete Blood Count Auto Diff Today Z00.01 - Encounter for general adult medical examination with abnormal findings Lipid Panel Today Z00.01 - Encounter for general adult medical examination with abnormal findings UA CC w/rflx Micro + Cult Today Z00.01 - Encounter for general adult medical examination with abnormal findings Vitamin D 25-OH Total Today Z00.01 - Encounter for general adult medical examination with abnormal findings Comprehensive [place]. Panel Fast Today Z00.01 - Encounter for general adult medical examination with abnormal findings TSH reflex Free T4 Today Z00.01 - Encounter for general adult medical examination with abnormal findings
== END 2025-03-19 09:48 | disposition home or self-care (01) ==
LOC: HO.HMCFM 09:01
PROVIDERS: PCP Nurse Practitioner Family; Visit Provider Nurse Practitioner Family
DX: Z00.00 Encounter for general adult medical examination without abnormal findings (principal)

== ENCOUNTER → 2025-03-19 09:01 | Outpatient (BNVA) | payer OTHER, SELFPAY | PROVIDERS: PCP Nurse Practitioner Family; Visit Provider Nurse Practitioner Family | DX: Z00.00 Encounter for general adult medical examination without abnormal findings (principal) | CPT/HCPCS: 99395 ==